=== PATIENT | male | born 1990 | race Two or more races ===

== ENCOUNTER 2018-04-09 17:42 | Emergency (ER) | payer BC ==
--- NOTE | 2018-04-09 18:59 | EDM.PDOC ---
ED HPI GENERAL MEDICAL PROBLEM - General Chief Complaint: Respiratory Problem Stated Complaint: SINUS INFECTION/HURT TOP BREATH AND CHEST PAIN Time Seen by Provider: 04/09/18 18:14 Source of Information: Reports: Patient History Limitations: Reports: No Limitations - History of Present Illness INITIAL COMMENTS - FREE TEXT/NARRATIVE: 27 yo M comes in for congestion, cough and flu-like symptoms x 3 days. He did not have the flu shot this year. No h/o asthma, TB or previous sinus infections. He denies any sick contacts, recent travel, TB contacts, but does state he could have "picked up something" from someone at work. He c/o F/C, SOB , wheezing, Cough with dark green sputum tinged w/ blood, congestion, runny nose with dark green mucus tinged w/ blood, weakness, body aches, decreased appetite, difficulty sleeping d/t SOB. He denies N/V/D, chest pain, hematuria/ hematochezia/melena or other GI/ complaints. No current PCP. - Related Data Allergies Allergy/AdvReac Type Severity Reaction Status Date / Time No Known Allergies Allergy Verified 04/09/18 17:47 Home Meds: Home Meds . [No Known Home Meds] 04/09/18 [History] Past Medical History - Past Health History Medical/Surgical History: Denies Medical/Surgical History HEENT History: Reports: Other (See Below) Other HEENT History: Nasal polyp removal Social & Family History - Tobacco Use Smoking Status *Q: Never Smoker - Recreational Drug Use Recreational Drug Use: No ED ROS GENERAL - Review of Systems Review Of Systems: See Below Constitutional: Reports: No Symptoms, Fever, Chills, Weakness, Decreased Appetite HEENT: Reports: Sinus Problem, Throat Pain. Denies: Ear Pain, Eye Discharge, Vision Change Respiratory: Reports: Shortness of Breath, Wheezing, Cough, Sputum (dark green w / blood tinged sputum) Cardiovascular: Reports: No Symptoms. Denies: Chest Pain, Blood Pressure Problem Endocrine: Reports: Fatigue GI/Abdominal: Reports: Decreased Appetite. Denies: Abdominal Pain, Bloody Stool , Diarrhea, Nausea, Vomiting : Reports: No Symptoms. Denies: Dysuria, Flank Pain, Frequency, Hematuria Musculoskeletal: Reports: No Symptoms Skin: Reports: No Symptoms Neurological: Reports: Weakness. Denies: Headache Psychiatric: Reports: No Symptoms Hematologic/Lymphatic: Reports: No Symptoms Immunologic: Reports: No Symptoms ED EXAM, GENERAL - Physical Exam Exam: See Below Exam Limited By: No Limitations General Appearance: Alert, WD/WN Eye Exam: Bilateral Eye: EOMI, PERRL Ears: Normal External Exam, Normal Canal, Hearing Grossly Normal Nose: Normal Inspection, Normal Mucosa, No Blood, Nasal Tenderness Throat/Mouth: Normal Lips, Normal Teeth, Normal Gums, Normal Oropharynx, Normal Voice, No Airway Compromise. No: Normal Inspection (erythema) Neck: Lymphadenopathy (L), Lymphadenopathy (R) Respiratory/Chest: No Respiratory Distress, Lungs Clear, Normal Breath Sounds, No Accessory Muscle Use, Chest Non-Tender Cardiovascular: Normal Peripheral Pulses, Regular Rate, Rhythm, No Edema, No Gallop, No JVD, No Murmur, No Rub Peripheral Pulses: 4+: Posterior Tibial (L), Posterior Tibial (R), Dorsalis Pedis (L), Dorsalis Pedis (R) GI/Abdominal: Normal Bowel Sounds, Soft, Non-Tender, No Organomegaly, No Distention, No Abnormal Bruit, No Mass Back Exam: Normal Inspection Extremities: Normal Inspection, Normal Range of Motion, Non-Tender, Normal Capillary Refill, No Pedal Edema Neurological: Alert, Oriented, CN II-XII Intact, Normal Cognition, Normal Gait, Normal Reflexes, No Motor/Sensory Deficits Psychiatric: Normal Affect, Normal Mood Skin Exam: Warm, Dry, Intact, Normal Color, No Rash Course - Vital Signs Last Recorded V/S: Last Vital Signs Temp 97.6 F 04/09/18 17:48 Pulse 64 04/09/18 17:48 Resp 16 04/09/18 17:48 BP 137/81 04/09/18 17:48 Pulse Ox 97 04/09/18 17:48 - Orders/Labs/Meds Orders: Active Orders 24 hr Category Date Time Status Chest 1V Frontal [CR] Stat Exams 04/09/18 18:33 Taken COMPREHENSIVE METABOLIC PN,CMP [CHEM] Stat Lab 04/09/18 18:50 Received CRP [C-REACTIVE PROTEIN] [CHEM] Stat Lab 04/09/18 18:50 Received CULTURE STREP A CONFIRMATION [RM] Stat Lab 04/09/18 18:35 Results STREP SCRN A RAPID W CULT CONF [RM] Stat Lab 04/09/18 18:35 Results Labs: Laboratory Tests 04/09/18 Range/Units 18:50 WBC 3.55 L (4.23-9.07) K/mm3 RBC 4.82 (4.63-6.08) M/mm3 Hgb 14.4 (13.7-17.5) gm/L Hct 40.8 (40.1-51.0) % MCV 84.6 (79.0-92.2) fl MCH 29.9 (25.7-32.2) pg MCHC 35.3 (32.2-35.5) g/dl RDW Std Deviation 37.5 (35.1-43.9) fL Plt Count 229 (163-337) K/mm3 MPV 9.1 L (9.4-12.3) fl Neut % (Auto) 27.9 L (34.0-67.9) % Lymph % (Auto) 54.9 H (21.8-53.1) % Wilcox % (Auto) 15.2 H (5.3-12.2) % Eos % (Auto) 1.1 (0.8-7.0) Baso % (Auto) 0.6 (0.1-1.2) % Neut # (Auto) 0.99 L (1.78-5.38) K/mm3 Lymph # (Auto) 1.95 (1.32-3.57) K/mm3 Wilcox # (Auto) 0.54 (0.30-0.82) K/mm3 Eos # (Auto) 0.04 (0.04-0.54) K/mm3 Baso # (Auto) 0.02 (0.01-0.08) K/mm3 Manual Slide Review Normal smear - Re-Assessments/Exams Free Text/Narrative Re-Assessment/Exam: 04/09/18 18:33 I ordered Strep, Influenza, CBC, CMP, CRP, CXR 04/09/18 19:16 Strep negative, Influenza B positive CBC WNL CMP, CRP, CXR pending 04/09/18 19:[address] Coulter and myself. No pneumonia present, perhaps some bronchitis likely 2/2 Influenza, nothing else acute appreciated. 04/09/18 19:41 CMP WNL, CRP elevated at 5.6, likely 2/2 Influenza/bronchitis Departure - Departure Time of Disposition: 19:44 Disposition: Home, Self-Care 01 Condition: Fair Clinical Impression: Influenza B, Bronchitis with influenza - Discharge Information *PRESCRIPTION DRUG MONITORING PROGRAM REVIEWED*: Not Applicable *COPY OF PRESCRIPTION DRUG MONITORING REPORT IN PATIENT LATRICIA: Not Applicable Instructions: Influenza, Adult, [id number], Viral Respiratory Infection, Easy -To-Read, Cough, Adult, [id number] Referrals: PCP,None [Primary Care Provider] - Forms: ED Department Discharge Additional Instructions: You were seen in the ED today for Flu-like symptoms, including congestion and cough x3-4 days. You tested positive for Influenza B. Strep was negative. Other workup here was negative. CXR did show possible bronchitis, likely 2/2 influenza. At this time, Tamiflu is not indicated as it has already been >48H since your symptoms started. Recommend [id number] decongestant such as Sudafed for congestion, humidifier/hot shower to help break up the mucous in lungs and nose, and other over the counter medications for relief of other symptoms (such as Mucinex for mucous, Nyquil/Dayquil for cough, etc.). Cough will likely linger for up to 10 days. Recommend plenty of rest and fluids/ hydration with Gatorade, water, and/or Pedialyte. Follow up with primary care physician as needed. Please return to ED if new or worsening symptoms. - My Orders Last 24 Hours: My Active Orders 04/09/18 18:33 Chest 1V Frontal [CR] Stat 04/09/18 18:35 CULTURE STREP A CONFIRMATION [RM] Stat STREP SCRN A RAPID W CULT CONF [RM] Stat 04/09/18 18:50 COMPREHENSIVE METABOLIC PN,CMP [CHEM] Stat CRP [C-REACTIVE PROTEIN] [CHEM] Stat - Assessment/Plan Last 24 Hours: My Active Orders 04/09/18 18:33 Chest 1V Frontal [CR] Stat 04/09/18 18:35 CULTURE STREP A CONFIRMATION [RM] Stat STREP SCRN A RAPID W CULT CONF [RM] Stat 04/09/18 18:50 COMPREHENSIVE METABOLIC PN,CMP [CHEM] Stat CRP [C-REACTIVE PROTEIN] [CHEM] Stat
--- NOTE | 2018-04-10 08:20 | CR ---
Chest: Portable view of the chest was obtained. Comparison: No prior chest x-ray. Heart size and mediastinum are normal. Lungs are clear. Bony structures are grossly intact. Impression: 1. Nothing acute is identified on portable chest x-ray. Diagnostic code #1
== END 2018-04-09 19:54 | disposition home or self-care (01) ==
LOC: JD.ED 17:42
DX: J10.1 Influenza due to other identified influenza virus with other respiratory manifestations (principal)
CPT/HCPCS: 36415; 71045; 71045-26; 80053; 85025; 86140; 87081; 87430; 87804; 99282; 99285-25